=== PATIENT | female | born 2000 | race Caucasian/White ===

== ENCOUNTER 2018-03-14 20:37 | Emergency (ER) | payer BC ==
[2018-03-14 20:40] VITALS: BP 112/66
--- NOTE | 2018-03-14 20:52 | ED ---
Throat Pain/Nasal Congestion - HPI Summary HPI Summary: 17-year-old female presents with sore throat for the past 2 days. She admits to occasional fevers. She notes occasional headache. She denies any cough. She denies any nausea vomiting or abdominal pain. She has history of strep. She denies anyone else being sick. She states that she feels very fatigued. She admits to sinus congestion. She has been taking ibuprofen with relief. - History of Current Complaint Chief Complaint: UCRespiratory Time Seen by Provider: 03/14/18 20:46 - Allergies/Home Medications Allergies/Adverse Reactions: Allergies Allergy/AdvReac Type Severity Reaction Status Date / Time No Known Allergies Allergy Verified 03/14/18 20:40 Home Medications: Home Medications Ibuprofen TAB* [Advil TAB*] 600 mg PO PRN 03/14/18 [History] PMH/Surg Hx/FS Hx/Imm Hx Endocrine/Hematology History: Denies: Hx Anticoagulant Therapy Respiratory History: Denies: Hx Asthma - Surgical History Surgery Procedure, Year, and Place: WISDOM TEETH Infectious Disease History: No Infectious Disease History: Denies: Hx Clostridium Difficile, Hx Hepatitis, Hx Human Immunodeficiency Virus (HIV), Hx of Known/Suspected MRSA, Hx Shingles, Hx Tuberculosis, Traveled Outside the [place] in Last 30 Days - Family History Known Family History: Negative: Respiratory Disease - Social History Alcohol Use: None Substance Use Type: Reports: None Smoking Status (MU): Never Smoked Tobacco Review of Systems Positive: Fever Positive: Sore Throat, Nasal Discharge Negative: Cough Negative: Abdominal Pain, Nausea All Other Systems Reviewed And Are Negative: Yes Physical Exam Triage Information Reviewed: Yes Vital Signs On Initial Exam: Initial Vitals Temp Pulse Resp BP Pulse Ox 98.6 F 84 16 112/66 98 03/14/18 20:37 03/14/18 20:37 03/14/18 20:37 03/14/18 20:37 03/14/18 20:37 Vital Signs Reviewed: Yes Appearance: Positive: Well-Appearing Skin: Positive: Warm, Dry Head/Face: Positive: Normal Head/Face Inspection Eyes: Positive: Normal, EOMI, PENNY, Conjunctiva Clear ENT: Positive: Normal ENT inspection, Pharyngeal erythema, TMs normal, Tonsillar swelling, Uvula midline, Other - soft palate symmetric. Negative: Tonsillar exudate, Trismus, Muffled voice Respiratory/Lung Sounds: Positive: Clear to Auscultation, Breath Sounds Present Cardiovascular: Positive: Normal, RRR Abdomen Description: Positive: Nontender, Soft Bowel Sounds: Positive: Present Musculoskeletal: Positive: Normal Neurological: Positive: Normal Psychiatric: Positive: Normal Diagnostics - Vital Signs Vital Signs Temp Pulse Resp BP Pulse Ox 03/14/18 20:37 98.6 F 84 16 112/66 98 - Laboratory Lab Statement: Any lab studies that have been ordered have been reviewed, and results considered in the medical decision making process. EENT Course/Dx - Course Course Of Treatment: 17-year-old female presents with sore throat for the past 2 days. She admits to occasional fevers. She notes occasional headache. She denies any cough. She denies any nausea vomiting or abdominal pain. She has history of strep. She denies anyone else being sick. She states that she feels very fatigued. She admits to sinus congestion. She has been taking ibuprofen with relief. On exam pharynx erythematous. Uvula midline. Soft palate symmetric. strept neg. will treat with decadron. patient understand and agrees with plan. - Differential Diagnoses Differential Diagnoses: Pharyngitis, Sinusitis, Other - mono - Diagnoses Provider Diagnoses: Pharyngitis Discharge - Sign-Out/Discharge Documenting (check all that apply): Patient Departure - Discharge Plan Condition: Good Disposition: HOME Prescriptions: Dexamethasone TAB* [Decadron TAB*] 4 mg PO DAILY #5 tab Patient Education Materials: Pharyngitis (ED) Referrals: Jhonny Camarena MD [Primary Care Provider] - Additional Instructions: Take steroid once a day for 5 days Take Tylenol or ibuprofen for pain every 6 hours Can use cough drops or products such as cloraseptic spray Follow up with primary within 5 days Return to ED if develop fever does not respond to Tylenol or ibuprofen, inability to swallow, or difficulty breathing or any new or worsening symptoms - Billing Disposition and Condition Condition: GOOD Disposition: Home
== END 2018-03-14 21:15 | disposition home or self-care (01) ==
LOC: UCEAST 20:37
DX: J02.9 Acute pharyngitis, unspecified (principal)
CPT/HCPCS: 87651; 99202; G0463

== ENCOUNTER 2019-03-24 21:29 | Emergency (ER) | payer BC ==
[2019-03-24 21:41] VITALS: BP 121/81
--- NOTE | 2019-03-24 22:02 | UC ---
Skin Complaint HPI - HPI Summary HPI Summary: SEVERAL DAYS OF ITCHY RASH ON ABDOMEN AND LEFT HAND. ROOMMATES WERE DIAGNOSED WITH SCABIES ABOUT 4 WEEKS AGO. - History of Current Complaint Chief Complaint: UCSkin Time Seen by Provider: 03/24/19 21:44 Stated Complaint: ITCHINESS Hx Obtained From: Patient, Family/Cover Stripper - MOM Hx Last Menstrual Period: 1 WEEK AGO Onset/Duration: Gradual Onset, Lasting Days, Still Present Timing: Constant Onset Severity: Moderate Current Severity: Moderate Pain Intensity: 0 Pain Scale Used: 0-10 Numeric Character: Pruritus Aggravating Factor(s): Touch Alleviating Factor(s): Nothing - Allergy/Home Medications Allergies/Adverse Reactions: Allergies Allergy/AdvReac Type Severity Reaction Status Date / Time No Known Allergies Allergy Verified 03/24/19 21:41 Home Medications: Home Medications Fexofenadine (NF) [Molly (NF)] 60 mg PO 03/24/19 [History] Fluticasone Propionate [Flonase Allergy Relief] 50 mcg NA 03/24/19 [History] PMH/Surg Hx/FS Hx/Imm Hx - Additional Past Medical History Additional PMH: ALLERGIES Other History Of: Negative For: Anticoagulant Therapy - Surgical History Surgical History: Yes Surgery Procedure, Year, and Place: WISDOM TEETH - Family History Known Family History: Negative: Respiratory Disease - Social History Alcohol Use: Occasionally Substance Use Type: None Smoking Status (MU): Never Smoked Tobacco - Immunization History Vaccination Up to Date: Yes Review of Systems All Other Systems Reviewed And Are Negative: Yes Constitutional: Positive: Negative Skin: Positive: Rash Respiratory: Positive: Negative Cardiovascular: Positive: Negative Gastrointestinal: Positive: Negative Physical Exam Triage Information Reviewed: Yes Appearance: Well-Appearing, No Pain Distress, Well-Nourished Vital Signs: Initial Vital Signs Temp 98.6 F 03/24/19 21:35 Pulse 67 03/24/19 21:35 Resp 18 03/24/19 21:35 BP 121/81 03/24/19 21:35 Pulse Ox 98 03/24/19 21:35 Eyes: Positive: Conjunctiva Clear ENT: Positive: Hearing grossly normal Neck: Positive: Supple Respiratory: Positive: No respiratory distress, No accessory muscle use Cardiovascular: Positive: Pulses Normal Abdomen Description: Positive: Soft Musculoskeletal: Positive: No Edema Neurological: Positive: Alert Psychological: Positive: Age Appropriate Behavior Skin: Positive: Rashes - PINPOINT PAPULAR RASH ON ABDOMEN AND LEFT HAND Course/Dx - Course Course Of Treatment: GIVEN ITCHY RASH AND EXPOSURE TO KNOWN SCABIES WILL GO AHEAD AND COVER HER WITH ELIMITE. FOLLOW-UP WITH DERMATOLOGY IF NOT IMPROVING WITH TREATMENT. - Diagnoses Provider Diagnosis: Scabies Discharge - Sign-Out/Discharge Documenting (check all that apply): Patient Departure All imaging exams completed and their final reports reviewed: No Studies - Discharge Plan Condition: Stable Disposition: HOME Prescriptions: Permethrin [Elimite] 5 % TOPICAL ONCE #1 tube Patient Education Materials: Scabies (ED) Referrals: Liset Birmingham MD [Primary Care Provider] - If Needed Additional Instructions: SCABIES YOUR RASH IS CONSISTENT WITH SCABIES. APPLY THE ELIMITE CREAM FROM HEAD TO TOE AND LEAVE ON FOR 10-14 HOURS BEFORE WASHING OFF. YOU MAY HAVE SOME PERSISTENT ITCHING AFTER EFFECTIVE TREATMENT. IF YOUR SYMPTOMS ARE STILL PRESENT IN 2 WEEKS YOU MAY REPEAT THE TREATMENT. IF YOU'RE NOT IMPROVING EXPECTED FOLLOW- UP WITH DERMATOLOGY LISTED BELOW. WASH ALL SHEETS AND CLOTHES IN HOT WATER. VACUUM ALL CARPETS AND FURNITURE. MITES CAN NOT SURVIVE WITHOUT A HUMAN HOST SO IF THERE ARE ANY ITEMS THAT CAN NOT BE CLEANED ADEQUATELY SIMPLY REMOVE THEM FROM HUMAN CONTACT OR PLACE THEM IN A PLASTIC BAG FOR A MINIMUM OF 72 HOURS. CLOSE HOUSEHOLD CONTACTS SHOULD CONSIDER TREATMENT WELL. DERMATOLOGY IN [place] DR. RAMIRO JONES [facility], [facility] [address]; [address] [place] [address] Dr. Lidya Chase [place] Address: [address] [place] [address] [address] [place] [address] DR. ROBERT SKY, DR. MEAGHAN CARR [facility] [address] [facility], [place] [address] D[place] [place] Dr. Gloria Lr DERMATOLOGY IN [place] DR. ROBERT SKY [phone] - Billing Disposition and Condition Condition: STABLE Disposition: Home
== END 2019-03-24 22:04 | disposition home or self-care (01) ==
LOC: UCEAST 21:29
DX: B86 Scabies (principal)
CPT/HCPCS: 99212; G0463